=== PATIENT | female | born 1945 | race Caucasian/White ===

== ENCOUNTER 2017-02-23 17:41 | Emergency (ER) | payer MEDICARE, BC ==
[2017-02-23] MEDS ORDERED: diphenhydrAMINE 25 MG Cap PO ONE (18:17)
[2017-02-23] MEDS ORDERED: Hydrocortisone 1% Oint 28 GM Tube TOP ONE (18:18)
[2017-02-23] MEDS ORDERED: Triamcinolone Acetonide 0.1% Oint 15 GM Tube TOP ONE (18:26)
--- NOTE | 2017-02-23 18:26 | EDM.PDOC ---
ED HPI GENERAL MEDICAL PROBLEM - General Chief Complaint: Bite:Animal, Insect Stated Complaint: STUNG BY INSECT Time Seen by Provider: 02/23/17 18:02 Source of Information: Reports: Patient History Limitations: Reports: No Limitations - History of Present Illness INITIAL COMMENTS - FREE TEXT/NARRATIVE: 71 yo female presents to ER post bee sting below left eye. She did place a rag with spirits of turpentine - Related Data Allergies Allergy/AdvReac Type Severity Reaction Status Date / Time Sulfa (Sulfonamide Allergy Hives Verified 02/23/17 18:02 Antibiotics) Social & Family History - Tobacco Use Smoking Status *Q: Never Smoker ED ROS GENERAL - Review of Systems Review Of Systems: See Below Constitutional: Denies: Fever Respiratory: Denies: Shortness of Breath, Wheezing Cardiovascular: Denies: Chest Pain Skin: Reports: Erythema ED EXAM, ANIMAL BITE - Physical Exam Exam: See Below Exam Limited By: No Limitations General Appearance: Alert, WD/WN, No Apparent Distress Head: Facial Swelling, Facial Tenderness (left cheek just below eye ) Course - Orders/Labs/Meds Meds: Medications Discontinued Medications Generic Name Dose Route Start Last Admin Trade Name Freq PRN Reason Stop Dose Admin Diphenhydramine HCl 25 mg 02/23/17 18:17 02/23/17 18:29 Benadryl PO 02/23/17 18:18 25 mg ONETIME ONE Administration Hydrocortisone 1 gm 02/23/17 18:18 Hydrocortisone 1% Oint TOP 02/23/17 18:19 ONETIME ONE Triamcinolone Acetonide 1 gm 02/23/17 18:26 02/23/17 18:59 Triamcinolone Acetonide 0.1% Oint TOP 02/23/17 18:27 Not Given ONETIME ONE Triamcinolone Acetonide 15 gm 02/23/17 18:58 02/23/17 18:58 Triamcinolone Acetonide 0.1% Crm TOP 02/23/17 18:59 15 gm ONETIME ONE Administration Triamcinolone Acetonide Confirm 02/23/17 18:56 02/23/17 19:00 Triamcinolone Acetonide 0.1% Crm Administered 02/23/17 18:57 Not Given Dose 15 gm .ROUTE .STK-MED ONE - Re-Assessments/Exams Free Text/Narrative Re-Assessment/Exam: 02/23/17 19:19 area of face were she had applied the turpentine cleansed with soap and water, cool wash rag and ice applied to face. topical steroid applied to skin Departure - Departure Time of Disposition: 19:10 Disposition: Home, Self-Care 01 Condition: Good Clinical Impression: Bee sting Qualifiers: Encounter type: initial encounter Injury intent: accidental or unintentional Qualified Code(s): T63.441A - Toxic effect of venom of bees, accidental ( unintentional), initial encounter Contact dermatitis Qualifiers: Contact dermatitis type: irritant Contact dermatitis trigger: other chemical product Qualified Code(s): L24.5 - Irritant contact dermatitis due to other chemical products - Discharge Information Referrals: PCP,None [Primary Care Provider] - Forms: ED Department Discharge Additional Instructions: ice to face for burning pain control may use over the counter itch cream
[2017-02-23] MEDS ORDERED: Triamcinolone Acetonide 0.1% Crm 15 GM Tube ONE (18:56)
[2017-02-23] MEDS ORDERED: Triamcinolone Acetonide 0.1% Crm 15 GM Tube TOP ONE (18:58)
== END 2017-02-23 20:08 | disposition home or self-care (01) ==
LOC: JP.ED 17:41
DX: T63.441A Toxic effect of venom of bees, accidental (unintentional), initial encounter (principal); L24.5 Irritant contact dermatitis due to other chemical products; Z88.2 Allergy status to sulfonamides; W57.XXXA Bitten or stung by nonvenomous insect and other nonvenomous arthropods, initial encounter
CPT/HCPCS: 99283; A9270

== ENCOUNTER 2019-12-12 14:48 | Emergency (ER) | payer MEDICARE, BC ==
[2019-12-12] MEDS ORDERED: Sodium Chloride 0.9% 1,000 ML IV SCH (15:15)
--- NOTE | 2019-12-12 15:54 | CRLCT ---
Expressive aphasia No comparison studies are available. Findings: There is generalized mild parenchymal volume loss. There are old areas of infarction left frontal lobe as well as the left parietal lobe with adjacent ex vacuo dilatation of the lateral ventricle. There is a small hypodensity in the left frontal lobe series 2 image 14 this is indeterminate for possible area of ischemia or infarction. There is no acute intraparenchymal hemorrhage. No midline shift. There is no mass effect. No acute extra-axial air fluid collections. Paranasal sinuses mastoid air cells skull and scalp otherwise appears unremarkable. Impression: 1. No acute intraparenchymal hemorrhage or mass 2. Small hypodense area in the left frontal lobe is indeterminate for possible area of ischemia or infarction. MRI could be performed for further evaluation. 3. 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 Results called to Dr. Ni 12/12/2019 at 3:45 p.m. Please note that all CT scans at this facility use dose modulation, iterative reconstruction, and/or weight-based dosing when appropriate to reduce radiation dose to as low as reasonably achievable. Dictated by Dianne Coffey MD @ 12/12/2019 3:55:58 PM Signed by: Dianne Coffey MD @ 12/12/2019 3:55:58 PM (Electronic Signature) (Electronically Signed)
--- NOTE | 2019-12-12 16:00 | EDM.PDOC ---
ED HPI GENERAL MEDICAL PROBLEM - General Chief Complaint: Neuro Symptoms/Deficits Stated Complaint: MEDICAL VIA [facility] Time Seen by Provider: 12/12/19 15:10 Source of Information: Reports: Patient, EMS, Family History Limitations: Reports: Physical Impairment - History of Present Illness INITIAL COMMENTS - FREE TEXT/NARRATIVE: 74-year-old female brought in by EMS with over 24 hours of expressive a aphasia. She also has lack of coordination with walking. This is a chronic recurring syndrome that she has in response to stress, which is been going on for over 10 years. It usually resolves within a few hours, at this point because it still persistent her called the ambulance. Instead of taking the patient to the stroke center, they brought her here because of her history. She continues to have expressive a aphasia but it is very intermittent , waxing and waning and does not seem consistent with acute ischemic stroke. She has no headache, no lateralizing weakness or numbness in the extremities. The patient herself did not want to be transferred but the started to become worried. Onset: Sudden (Symptoms started fairly suddenly over 24 hours ago) Worsens with: Reports: Other (Worsens with stress or anxiety, seems to improve when she is calm) Associated Symptoms: Reports: No Other Symptoms Denies Pain Score (Numeric/FACES): 0 - Related Data Allergies Allergy/AdvReac Type Severity Reaction Status Date / Time Sulfa (Sulfonamide Allergy Hives Verified 02/23/17 18:02 Antibiotics) Home Meds: Home Meds Aspirin 1 tab PO DAILY 02/23/17 [History] Clopidogrel [Plavix] 1 tab PO DAILY 02/23/17 [History] Estrogens, Conjugated [Premarin Vaginal Crm] 1 dose TOP ASDIRECTED 02/23/17 [ History] Ibandronate [Boniva] 150 mg PO ASDIRECTED 02/23/17 [History] Ketoconazole [Nizoral 2% Shampoo] 1 oz TOP DAILY PRN 02/23/17 [History] Oxybutynin Chloride [Oxybutynin Chloride ER] 15 mg PO DAILY 02/23/17 [History] Simvastatin [Zocor] 1 tab PO DAILY 02/23/17 [History] atenoloL [Atenolol] 25 mg PO DAILY 02/23/17 [History] metroNIDAZOLE [metroNIDAZOLE 0.75% Gel] 1 dose TOP DAILY PRN 02/23/17 [History] Acetaminophen [Tylenol Arthritis Pain] 650 mg PO Q8H PRN 12/12/19 [History] Ascorbic Acid [Vitamin C] 1,000 mg PO DAILY 12/12/19 [History] Calcium Carbonate [Calcium] 600 mg PO DAILY 12/12/19 [History] Cholecalciferol (Vitamin D3) [Vitamin D3] 1,000 unit PO DAILY 12/12/19 [History] Cranberry 500 mg PO DAILY 12/12/19 [History] Flaxseed/Omega3,6,9/Fatty Acid [Flax Seed Oil 1,300 mg Softgel] 1 tab PO DAILY 12/12/19 [History] Krill/[place]-3/Dha/Epa/Lipids [[place]-3 Krill Oil 500 mg Sfgl] 1 tab PO DAILY [History] Magnesium Oxide [Magnesium] 250 mg PO DAILY 12/12/19 [History] Multivitamin [Multi-Vitamin Daily] 1 each PO DAILY 12/12/19 [History] Potassium Gluconate [Potassium] 550 mg PO DAILY 12/12/19 [History] Ubidecarenone [Co Q-10] 200 mg PO DAILY 12/12/19 [History] Past Medical History HEENT History: Reports: Hard of Hearing Musculoskeletal History: Reports: Back Pain, Chronic - Past Surgical History HEENT Surgical History: Reports: Cataract Surgery, Eye Surgery Female Surgical History: Reports: Hysterectomy ED ROS GENERAL - Review of Systems Review Of Systems: See Below Constitutional: Denies: Fever, Chills HEENT: Denies: Vision Change Respiratory: Denies: Shortness of Breath, Cough Cardiovascular: Denies: Chest Pain GI/Abdominal: Denies: Abdominal Pain, Nausea, Vomiting Skin: Reports: No Symptoms Neurological: Reports: Confusion, Trouble Speaking, Gait Disturbance. Denies: Headache Psychiatric: Reports: Anxiety ED EXAM, NEURO - Physical Exam Exam: See Below Exam Limited By: No Limitations General Appearance: Alert, No Apparent Distress Eye Exam: Bilateral Eye: Normal Inspection Head Exam: Atraumatic Neck: Supple. No: Carotid Bruit Respiratory/Chest: No Respiratory Distress, Lungs Clear Cardiovascular: Regular Rate, Rhythm Neurological: Alert, Normal Mood/Affect, No Motor/Sensory Deficits (She has no lateralizing weakness to the arm or leg, grasp strength is equal in dorsi and plantarflexion of the feet are symmetric. She continues to display what appears to be a combination of expressive aphasia and dysarthria. It seems to wax and wane.), Oriented x 3 Course - Vital Signs Last Recorded V/S: Last Vital Signs Temp 98.6 F 12/12/19 17:09 Pulse 53 L 12/12/19 17:09 Resp 16 12/12/19 17:09 BP 150/54 H 12/12/19 17:09 Pulse Ox 98 12/12/19 17:09 - Orders/Labs/Meds Meds: Medications Discontinued Medications Generic Name Dose Route Start Last Admin Trade Name Freq PRN Reason Stop Dose Admin Sodium Chloride 1,000 mls @ 1,000 mls/hr 12/12/19 15:15 12/12/19 15:52 Normal Saline IV 1,000 mls/hr ASDIRECTED TRACY Administration - Re-Assessments/Exams Free Text/Narrative Re-Assessment/Exam: 12/12/19 16:00 Impression: 1. No acute intraparenchymal hemorrhage or mass 2. Small hypodense area in the left frontal lobe is indeterminate for possible area of ischemia or infarction. MRI could be performed for further evaluation. 3. 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 Results called to Dr. iN 12/12/2019 at 3:45 p.m. 12/12/19 16:23 After discussing her symptoms with her , the above CT scan was obtained. We do not have MRI available, and when I explained to the and patient that transfer for an MRI would be needed for further evaluation, they both elected to have her go home and give it 1 more day. If her symptoms are still present tomorrow, they will return for transfer for an MRI. Departure - Departure Time of Disposition: 17:17 Disposition: Home, Self-Care 01 Clinical Impression: Expressive aphasia, Dysarthria - Discharge Information Instructions: Aphasia Referrals: PCP,None [Primary Care Provider] - Forms: ED Department Discharge Care Plan Goals: Rest tonight, continue your regular medications and increase activity as tolerated. Consider returning tomorrow if not improving satisfactorily for further work-up including an MRI or neurology consultation. Sepsis Event Note - Focused Exam Vital Signs: Vital Signs Temp Pulse Resp BP Pulse Ox 12/12/19 17:09 98.6 F 53 L 16 150/54 H 98 12/12/19 16:19 98.4 F 74 14 176/84 H 98 12/12/19 14:58 98.4 F 74 14 176/84 H 98 Date Exam was Performed: 12/12/19 Time Exam was Performed: 17:56
[2019-12-12 17:10] VITALS: BP 150/54; PULSE 53
== END 2019-12-12 17:17 | disposition home or self-care (01) ==
LOC: JP.ED 14:48
DX: R47.01 Aphasia (principal); R47.1 Dysarthria and anarthria; Z88.2 Allergy status to sulfonamides; Z79.82 Long term (current) use of aspirin; Z79.899 Other long term (current) drug therapy; Z79.02 Long term (current) use of antithrombotics/antiplatelets
CPT/HCPCS: 70450; 96360; 99285; J7030